=== PATIENT | female | born 1945 | race Asian ===

== ENCOUNTER 2016-12-09 07:37 | Day surgery (SDC) | payer OTHER ==
--- NOTE | ~2016-12-09 | EGD ---
EGD REPORT [facility] [address] [address] NAME: IVONE RICK : [birth year] STATUS : [place] [facility] [place]#: [id number] AGE: 71 ADM/REG DATE : 12/09/16 MR#: [id number] REPORT SERV DATE: 12/09/16 DICTATED BY: DATE: REPORT STATUS : Draft TRANSCRIBED BY: [employer] DATE: 12/09/16 [facility] Patient Name: Ivone Rick Date of : 1945 Attending MD: BOGDAN FRAGOSO MD Procedure Date No Time: 12/09/2016 Procedure: Upper GI endoscopy Indications: Follow-up of esophageal varices, For therapy of esophageal varices Referring MD: RIGOBERTO ESTRELLA Medicines: Monitored Anesthesia Care Complications: No immediate complications. Procedure: Pre-Anesthesia Assessment: - ASA Grade Assessment: III - A patient with severe systemic disease. After obtaining informed consent, the endoscope was passed under direct vision. Throughout the procedure, the patient's blood pressure, pulse, and oxygen saturations were monitored continuously. The GIF [id number] was introduced through the mouth, and advanced to the second part of duodenum. The upper GI endoscopy was accomplished without difficulty. The patient tolerated the procedure well. Findings: Grade II varices were found in the lower third of the esophagus. Four bands were successfully placed with complete eradication, resulting in deflation of varices. There was no bleeding during, and at the end, of the procedure. No other significant abnormalities were identified in a careful examination of the esophagus. There is no endoscopic evidence of areas of erosion, hiatus hernia or ulcerations in the entire esophagus. Moderate portal hypertensive gastropathy was found in the gastric fundus, in the gastric body and in the gastric antrum. Many non-bleeding superficial gastric ulcers were found in the gastric antrum. The largest lesion was 6 mm in largest dimension. A single, large varix was found in the cardia on retroflexion, as previously described. A single, smooth, small nodule was found in the duodenal bulb. Biopsies were taken with a cold forceps for histology. The exam of the duodenum was otherwise normal. There is no endoscopic evidence of inflammation or mucosal abnormalities in the entire examined duodenum. The cardia and gastric fundus were otherwise normal on retroflexion. EGD REPORT [address] [address] NAME: IVONE RICK : [birth year] STATUS : REG [facility]#: [id number] AGE: 71 ADM/REG DATE : 12/09/16 MR#: [id number] REPORT SERV DATE: 12/09/16 DICTATED BY: DATE: REPORT STATUS : Draft TRANSCRIBED BY: [employer] DATE: 12/09/16 Impression: - Grade II esophageal varices. Completely eradicated. Banded. - Portal hypertensive gastropathy. - Gastric ulcers with clean base. - Gastric varices, without bleeding. - Normal examined duodenum. Recommendation: - Patient has a contact number available for emergencies. The signs and symptoms of potential delayed complications were discussed with the patient. Return to normal activities tomorrow. Written discharge instructions were provided to the patient. - Return to previous diet. - Discharge patient to home. - Continue present medications. - No aspirin, ibuprofen, naproxen, or other non-steroidal anti-inflammatory drugs. - Await pathology results. - Recommend nadolol in low dose, ammonia level, U/S and AFP at 6 mos intervals. Strongly urge evaluation by Dr. Danis Margaret. - Use Protonix (pantoprazole) 40 mg PO BID. - Repeat the upper endoscopy in 6 months for surveillance. Procedure Code(s): --- Professional --- 98921, Esophagogastroduodenoscopy, flexible, transoral; with band ligation of esophageal/gastric varices 40936, Esophagogastroduodenoscopy, flexible, transoral; with biopsy, single or multiple Diagnosis Code(s): --- Professional --- I85.00, Esophageal varices without bleeding K76.6, Portal hypertension K31.89, Other diseases of stomach and duodenum K25.9, Gastric ulcer, unspecified as acute or chronic, without hemorrhage or perforation I86.4, Gastric varices CPT copyright 2013 [employer]. All rights reserved. The codes documented in this report are preliminary and upon medical records coder review may be revised to meet current compliance requirements. EGD REPORT [facility] [address] [address] NAME: IVONE RICK : [birth year] STATUS : [place] [facility] [place] PAT#: [id number] AGE: 71 ADM/REG DATE : 12/09/16 MR#: [id number] REPORT SERV DATE: 12/09/16 DICTATED BY: DATE: REPORT STATUS : Draft TRANSCRIBED BY: [employer] DATE: 12/09/16 BOGDAN FRAGOSO MD 12/09/2016 9:38 AM This report has been signed electronically. Number of Addenda: 0 Note Initiated On: 12/09/2016 9:15 AM Scope Withdrawal Time 0 hours 0 minutes [address] [place], [place] [address]GERRY Boone [id number]
[~2016-12-09 07:37] MED LIST: BEN25 PO; BONIVA150 MG PO; C25 PO; CALTRA600D PO; CALTRAT600 PO; DENIES HOME MEDS; FERROUS SULF325 M1 PO; FOLIC ACID800 MCG PO; FOLIC PO; GLUCCHONDR PO; GLUCOSAMINEPO PO; KLOR-CON 1010 MEQ PO; L20 PO; LEVEMIR SC; MAGOX4 PO; MULTIVIT/MIN PO; NEUR600 PO; NOVOLOGMIX; POTASSIUM 99MG PO; PRAV10 PO; PRAVAC PO; PRILOSEC40 MG PO; PROTONIX PO; REFRES1 T; REFRES1 XX; SPIRO25 PO; SPIRO50 PO; TUMS PO; VITAMIN B-121000 MC1 PO; VITAMIN D31000 UNIT PO; VITC500 PO; ZANTAC 75 PO
[2016-12-09 10:28] LABS: HEMATOCRIT 31.4 % (36.0-48.0); HEMOGLOBIN 10.6 g/dL (12.0-16.0); MEAN CORPUS HGB CONC 33.8 g/dL (32.0-36.0); MEAN CORPUSCULAR HEMOGLOB 31.7 pg (26.0-34.0); MEAN PLATELET VOLUME 8.8 fL (9.2-13.0); PLATELET COUNT 68 10/3/uL (150-400); RED CELL COUNT 3.34 10/6/uL (4.0-5.6)
[2016-12-09 10:31] LABS: RBC DISTRIBUTION WIDTH 13.9 % (12.0-16.0); WHITE BLOOD CELLS 1.3 10/3/uL (4.5-10.5)
[2016-12-09 10:36] LABS: MANUAL DIFF YES %
[2016-12-09 10:46] LABS: A/G RATIO 1.3 (0.7-1.9); ALBUMIN 3.5 G/DL (3.5-5.0); ALPHA FETOPROTEIN (TUMOR) 3.3 NG/ML (< 8.0); BUN (BLOOD UREA NITROGEN) 15 MG/DL (6-23); CALCIUM, SERUM 8.7 MG/DL (8.5-10.4); CHLORIDE, SERUM 113 MMOL/L (96-112); CO2 (CARBON DIOXIDE) 26 MMOL/L (24-34); CREATININE 0.79 MG/DL (0.55-1.02); GFR AFRICAN AMERICAN 89 ML/MIN (>=60); GFR NON AFRICAN AMERICAN 76 ML/MIN (>=60); GLOBULIN 2.8 G/DL (2.5-4.1); GLUCOSE, SERUM 171 MG/DL (60-99); POTASSIUM, SERUM 4.2 MMOL/L (3.5-5.3); SGOT(AST) 42 U/L (5-40); SGPT(ALT) 53 U/L (5-65); SODIUM, SERUM 146 MMOL/L (135-148); TOTAL BILIRUBIN 0.5 MG/DL (0-1.2); TOTAL PROTEIN 6.3 G/DL (6.0-8.5)
[2016-12-09 10:47] LABS: ALKALINE PHOSPHATASE 87 U/L (45-117); BAND NEUTROPHILS 1 %; BASOPHILS 1 %; BASOPHILS ABSOLUTE (CALC) 0.01 10/3/uL (0.0-0.16); EOSINOPHILS 3 %; EOSINOPHILS ABSOLUTE (CALC) 0.04 10/3/uL (0.0-0.53); LYMPHOCYTES 21 %; LYMPHOCYTES ABSOLUTE (CALC) 0.27 10/3/uL (0.67-4.30); MONOCYTES 6 %; MONOCYTES ABSOLUTE (CALC) 0.08 10/3/uL (0.21-1.20); PLATELET ESTIMATE DEC (ADEQUATE); SEGMENTED NEUTROPHIL (0) 68 %; TOTAL NUCLEATED CELLS 100
[2016-12-09 10:48] LABS: RBC MORPHOLOGY NORM (NORMAL)
== END 2016-12-09 23:59 | disposition home or self-care (01) ==
LOC: DMU 07:37
PROVIDERS: Internal Medicine Gastroenterology
PROC: 0DB68ZX Excision of Stomach, Via Natural or Artificial Opening Endoscopic, Diagnostic (ICD-10-PCS; 2016-12-09)
PROC: 0DB98ZX Excision of Duodenum, Via Natural or Artificial Opening Endoscopic, Diagnostic (ICD-10-PCS; principal; 2016-12-09 10:00)
PROC: 06L34CZ Occlusion of Esophageal Vein with Extraluminal Device, Percutaneous Endoscopic Approach (ICD-10-PCS; 2016-12-09 10:00)
DX: K29.50 Unspecified chronic gastritis without bleeding (principal); K29.80 Duodenitis without bleeding; E78.5 Hyperlipidemia, unspecified; M81.0 Age-related osteoporosis without current pathological fracture; K74.60 Unspecified cirrhosis of liver; E11.9 Type 2 diabetes mellitus without complications; D64.9 Anemia, unspecified; K76.6 Portal hypertension; I85.00 Esophageal varices without bleeding; K31.89 Other diseases of stomach and duodenum; E78.00 Pure hypercholesterolemia, unspecified; K25.9 Gastric ulcer, unspecified as acute or chronic, without hemorrhage or perforation; I86.4 Gastric varices; Z96.641 Presence of right artificial hip joint; Z98.51 Tubal ligation status
CPT/HCPCS: 80053; 82105; 82140; 82962; 85025; 88305